=== PATIENT | male | born 1980 | race Two or more races ===

== ENCOUNTER 2020-07-22 16:46 | Emergency (ER) | payer MEDICAID ==
[~2020-07-22] VITALS: Ht 177.8 cm; Wt 95.3 kg
[2020-07-22 16:51] VITALS: BP 120/73
--- NOTE | 2020-07-22 16:51 | NUR ---
ED Nurse Note: Pt BIBJulianne [id number] from home c/o right rib pain S/P fall x4 days ago. Denies head trauma. Denies LOC/ KO. AAOx4, verbally responsive. Hx of schizophrenia. No SOB, on room air. ERMD at bedside.
--- NOTE | 2020-07-22 16:57 | Emergency Room Report ---
History of Present Illness General Chief Complaint: Multiple Trauma/Fall Source: Patient Present Illness HPI Patient is a 40-year-old male denies any significant past medical history who presents to the ER complaining of right-sided rib pain after falling 4 days ago. Patient states that he tripped and fell injuring his right ribs. He denies any head trauma or loss of consciousness. He denies any prodromal symptoms such as dizziness, chest pain or shortness of breath prior to the fall. Patient was brought in by EMS. He is asking for food. At home we have to wait for his imaging prior to eating. 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 Patient History Social History: Denies: smoking, alcohol use, drug use Reviewed Nursing Documentation: PMH: Agreed; PSxH: Agreed Nursing Documentation-PMH Past Medical History: No History, Except For History Of Psychiatric Problem: Yes - Schizophrenia Review of Systems All Other Systems: negative except mentioned in HPI Physical Exam Vital Signs Date Time Temp Pulse Resp B/P (MAP) Pulse Ox O2 Delivery O2 Flow Rate FiO2 07/22/20 16:46 97.9 122 17 120/73 (89) 98 Room Air Sp02 EP Interpretation: reviewed, normal General Appearance: no apparent distress, alert, GCS 15, non-toxic, other - Disheveled Head: normocephalic, atraumatic Eyes: bilateral eye normal inspection, bilateral eye PERRL ENT: hearing grossly normal, normal pharynx, no angioedema, normal voice Neck: full range of motion, supple/symm/no masses Respiratory: no respiratory distress, no accessory muscle use, other - Right anterior and lateral rib tenderness to palpation Cardiovascular #1: tachycardia Gastrointestinal: normal bowel sounds, non tender, soft, non-distended, no guar ding, no rebound Rectal: deferred Genitourinary: no CVA tenderness Musculoskeletal: normal range of motion, no calf tenderness, moves extm spontaneously Neurologic: motor strength/tone normal, parking meter servicer III-XII nml as tested Psychiatric: no suicidal/homicidal ideation Skin: no rash Lymphatic: no adenopathy Medical Decision Making Diagnostic Impression: Primary Impression: Contusion of rib on right side Additional Impression: Fall ER Course Patient initially tachycardic. Patient given intramuscular Toradol. On reevaluation patient's heart rate is now in the 70s. Patient states his pain has improved. CT demonstrates no acute rib fractures or pneumothorax. Patient discharged home with Motrin. After discussing risks and benefits of further diagnostics, treatment plans, as well as indications for and risks of admission, the patient is agreeable to being discharged home. I have explained that their evaluation and treatment in the emergency department today is an important step towards them achieving better health but that their evaluation today is not intended to replace further evaluation and treatment by a physician in their local clinic. I have explained that while the current findings suggest no immediate life threatening emergency they will require further evaluation and treatment by a physician of their choice in their area. They understand that it will be necessary for them to review the final reports of their ED visit with their clinic physician. We have reviewed indications for return to the Emergen cy Department. I have explained that additional time may need to pass and/or additional testing as an outpatient may be necessary before a definitive diagnosis can be made. They tell me they are willing to follow up as instructed within the timeframe I recommend. They appear to understand what we discussed. Additionally they understand that if they are unable to be seen by an outpatient physician they are welcome, and in fact should, return to the Emergency Department for a repeat evaluation. The patient is stable at time of discharge. Last Vital Signs Date Time Temp Pulse Resp B/P (MAP) Pulse Ox O2 Delivery O2 Flow Rate FiO2 07/22/20 16:46 97.9 122 17 120/73 (89) 98 Room Air Disposition: HOME, SELF-CARE Condition: Stable Scripts Ibuprofen* (MOTRIN*) 600 Mg Tablet 600 MG ORAL FOUR TIMES A DAY, #30 TAB 0 Refills Prov: Razia Escobedo M.D. 07/22/20 Additional Instructions: The patient was provided with discharge instructions, notified to follow-up with a primary care doctor and or specialist in the next 24-48 hours, and to return to the ED if they have worsening of their symptoms. Please note that this report is being documented using [employer] technology. This can lead to erroneous entry secondary to incorrect interpretation by the dictating instrument. Razia Escobedo M.D. Jul 22, 2020 16:57
[2020-07-22] MEDS ORDERED: Ketorolac 60mg Inj IM ONE (17:00)
--- NOTE | 2020-07-22 17:10 | NUR ---
ED Nurse Note: Pt taken to CT via mariah.
--- NOTE | 2020-07-22 17:25 | NUR ---
ED Nurse Note: Pt returned from CT, not in any distress.
--- NOTE | 2020-07-22 17:46 | Diagnostic Imaging Report ---
EXAM: CT Chest Without Intravenous Contrast CLINICAL HISTORY: TRAUMA TECHNIQUE: Axial computed tomography images of the chest without intravenous contrast. CTDI is 6.5 mGy and DLP is 285.60 mGy-cm. One or more of the following dose reduction techniques were used: automated exposure control, adjustment of the mA and/or kV according to patient size, use of iterative reconstruction technique. COMPARISON: No previous studies. FINDINGS: Lungs: Evaluation of the right pulmonary parenchyma reveals minimal subsegmental atelectasis posteriorly in the mid lower lung zones. Evaluation of the left lung reveals subsegmental atelectasis posteriorly in the mid lower lung zones. The airway is patent. Pleural space: Unremarkable. No pneumothorax. No significant effusion. Heart: Heart is top normal in size. No significant pericardial effusion. Mediastinum: Small hiatal hernia and probable distal esophagitis. Thyroid: 0.2 cm cystic nodule midpole region of the left lobe of the thyroid gland. 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 Minimal anterior wedging of the T3 vertebral body of indeterminate age. Right clavicle is unremarkable. Evaluation of the right ribs reveals no acute right rib fractures. Evaluation of the left ribs reveals no acute left rib fractures. Sternum is unremarkable. No dislocation. Soft tissues: Unremarkable. Vasculature: Unremarkable. No thoracic aortic aneurysm. Lymph nodes: Unremarkable. No enlarged lymph nodes. Liver: Diffuse fatty infiltration of the liver. Kidneys and ureters: Minimal nonspecific stranding about the perinephric spaces. Nonspecific stranding about the perinephric spaces. Fatty infiltration of the liver. Other findings: ASCVD. IMPRESSION: 1. No pneumothorax. 2. No pleural effusion. 3. Subsegmental atelectasis at the lung bases.
[2020-07-22] MEDS ORDERED: IBUPROFEN600 M1 ORAL (17:52)
[2020-07-22 18:02] VITALS: BP 119/69
--- NOTE | 2020-07-22 19:04 | NUR ---
HAND-OFF: Report given to Teresa PETERSON.
[2020-07-22 19:30] VITALS: BP 116/69
--- NOTE | 2020-07-22 19:30 | NUR ---
ED Nurse Note: received patient from bailee woodward. patient sleeping in bed with no acute distress. vitals stable to baseline. arousable to name. ao4. discussed plan of care; patient aware of discharge; waiting for transport back home. [facility] eta 2000.
--- NOTE | 2020-07-22 20:30 | NUR ---
ED Nurse Note: followed up with [facility] for patient transportation; new eta 2200. patient remains calm in bed with no acute distress.
[2020-07-22 22:00] VITALS: BP 121/73
--- NOTE | 2020-07-22 22:00 | NUR ---
ED Nurse Note: patient sleeping in bed with no acute distress. respirations even and unlabored. will continue to monitor.
[2020-07-23] VITALS: BP 109/68
[2020-07-23 00:15] VITALS: BP 122/71
--- NOTE | 2020-07-23 00:15 | NUR ---
ED Nurse Note: report given to [facility] ems unit 405. patient to return home to [facility]. Patient is cleared to be discharged per ERMD, pt is aox4, on room air, with stable vital signs. pt was given dc and prescription instructions, pt was able to verbalize understanding, pt id band removed. pt is able to ambulate with steady gait. pt took all belongings. patient left with ems
== END 2020-07-23 00:15 | disposition home or self-care (01) ==
LOC: EDBD 16:46 → EMR 17:25
DX: S20.211A Contusion of right front wall of thorax, initial encounter (principal); R00.0 Tachycardia, unspecified; W01.0XXA Fall on same level from slipping, tripping and stumbling without subsequent striking against object, initial encounter; Y92.9 Unspecified place or not applicable; F20.9 Schizophrenia, unspecified
CPT/HCPCS: 71250; 80307; 96372; Z7502; 99284